=== PATIENT | male | born 1995 | race Two or more races ===

== ENCOUNTER 2024-04-06 19:32 | Emergency (ER) | payer OTHER ==
[~2024-04-06] VITALS: Ht 177.8 cm; Wt 108.0 kg
[2024-04-06 19:57] VITALS: BP 131/82; O2SAT 98
[2024-04-06] MEDS ORDERED: TETANUS & DIPHTHERIA TOX,ADULT 0.5 ML VIAL IM ONE (20:15)
[2024-04-06] MEDS ORDERED: KETOROLAC TROMETHAMINE 60 MG VIAL IM ONE (20:15)
[2024-04-06] MEDS ORDERED: CEFTRIAXONE SODIUM 2,000 MG VIAL IM ONE (20:15)
[2024-04-06] MEDS ORDERED: CEPHALEXIN750 MG PO (21:44)
[2024-04-06] MEDS ORDERED: PEPCID AC20 MG PO (21:44)
== END 2024-04-06 21:54 | disposition home or self-care (01) ==
LOC: ER 19:32
DX: S61.340A Puncture wound with foreign body of right index finger with damage to nail, initial encounter (principal); X58.XXXA Exposure to other specified factors, initial encounter; Y93.89 Activity, other specified; Y92.89 Other specified places as the place of occurrence of the external cause; Y99.9 Unspecified external cause status

== ENCOUNTER 2024-05-20 23:37 | Emergency (ER) | payer OTHER ==
[~2024-05-20] VITALS: Ht 175.3 cm; Wt 111.1 kg
[~2024-05-20 23:37] MED LIST: CEPHALEXIN750 MG PO; PEPCID AC20 MG PO
== END 2024-05-21 | disposition left against medical advice (07) ==
LOC: ER 23:38
DX: Z53.21 Procedure and treatment not carried out due to patient leaving prior to being seen by health care provider (principal)

== ENCOUNTER 2025-04-16 11:04 | Emergency (ER) | payer OTHER ==
[~2025-04-16] VITALS: Ht 175.3 cm; Wt 93.0 kg
[2025-04-16] MEDS ORDERED: KETOROLAC TROMETHAMINE 60 MG VIAL IM ONE (12:00)
== END 2025-04-16 14:20 | disposition home or self-care (01) ==
LOC: ER 11:04
DX: G89.11 Acute pain due to trauma (principal); M79.605 Pain in left leg